=== PATIENT | female | born 1980 | race Caucasian/White ===

== ENCOUNTER 2017-06-08 14:30 | Emergency (ER) | payer OTHER ==
[~2017-06-08] VITALS: Ht 170.2 cm; Wt 68.0 kg
[2017-06-08 14:34] VITALS: BP 120/59
[2017-06-08] MEDS ORDERED: SILVER SULFADIAZINE CREAM 25 GM TUBE TOP ONE (15:00)
[2017-06-08] MEDS ORDERED: SILVER SULFADIAZINE CREAM 25 GM TUBE ONE (15:01)
== END 2017-06-08 15:19 | disposition home or self-care (01) ==
LOC: ER 14:32
DX: T24.131A Burn of first degree of right lower leg, initial encounter (principal); Y92.89 Other specified places as the place of occurrence of the external cause
CPT/HCPCS: 99283; A4606; Z7610